=== PATIENT | female | born 1990 | race Caucasian/White ===

== ENCOUNTER 2024-07-21 18:26 | Emergency (ER) | payer BC, OTHER | END 2024-07-21 19:26 | disposition home or self-care (01) | LOC: ERS 18:26 | DX: M79.604 Pain in right leg (principal); I10 Essential (primary) hypertension; Z79.899 Other long term (current) drug therapy | CPT/HCPCS: 72170; 99283 ==

== ENCOUNTER 2024-08-18 10:05 | Outpatient (CLI) | payer BC | END 2024-08-18 10:06 | disposition home or self-care (01) | LOC: SCSMRI 10:05 | PROVIDERS: ATTEND Nurse Practitioner Family | DX: S89.92XD Unspecified injury of left lower leg, subsequent encounter (principal); M25.562 Pain in left knee; S83.512A Sprain of anterior cruciate ligament of left knee, initial encounter; S80.02XA Contusion of left knee, initial encounter; M22.3X2 Other derangements of patella, left knee ==

== ENCOUNTER → 2024-10-07 | Outpatient (CLI) | payer BC ==
[2024-10-07 13:29] LABS: #Basophils 0.06 10x3/uL (0.0-0.2); %Basophils 0.7 % (0.0-1.0); %Eosinophils 2.7 % (0.0-10.0); %Lymphocytes 29.3 % (21.0-51.0); %Monocytes 7.3 % (0.0-10.0); %Neutrophils 59.8 % (42.0-75.0); Hematocrit 41.7 % (36.0-47.0); Hemoglobin 13.8 g/dL (12.0-16.0); Mean Corpuscular HGB CONC 33.1 g/dL (32.0-36.0); Mean Corpuscular Hemoglobin 29.2 pg (27.0-31.0); Mean Corpuscular Volume 88.2 fL (78.0-98.0); Mean Platelet Volume 11.2 fL (7.4-10.4); Platelet Count 265 10x3/uL (130-400); RBC Distribution Width 12.4 % (11.5-14.5); Red Blood Cell (RBC) Count 4.73 mill/uL (4.20-5.40)
[2024-10-07 13:44] LABS: BHCG - Serum Negative (NEGATIVE); Pregs Control Background? CLEAR/WHITE (CLR/WHITE); Pregs Control Bar Appear? YES (CONTROL BAR)
[2024-10-07 13:45] LABS: Anion Gap 14 mmol/L (10-20); BUN (Urea Nitrogen) 14 mg/dL (7.0-18.7); Calc. Creatinine Clearance 0 mL/min (70-130); Calcium 9.7 mg/dL (7.8-10.44); Carbon Dioxide 24 mmol/L (22-29); Chloride 103 mmol/L (98-107); Estimated GFR 103; Glucose 94 mg/dL (70-105); Potassium 4.3 mmol/L (3.5-5.1); Sodium 137 mmol/L (136-145)
== END ==
LOC: LABBT 10:00
PROVIDERS: ATTEND Student in an Organized Health Care Education/Training Program
DX: Z01.818 Encounter for other preprocedural examination (principal); S83.512A Sprain of anterior cruciate ligament of left knee, initial encounter
CPT/HCPCS: 71046; 80048; 84703; 85025; 93005; 93010

== ENCOUNTER 2024-10-11 05:29 | Day surgery (SDC) | payer BC ==
[2024-10-07 12:46] VITALS: BMI 35.5
[2024-10-11] MEDS ORDERED: PROPOFOL 40 ML ONE (06:15)
[2024-10-11] MEDS ORDERED: EPINEPHrine 1 MG/ML VIAL ONE (06:19)
[2024-10-11] MEDS ORDERED: fentaNYL 50 mcg/mL 1 mL Vial ONE ×3 (06:19→10:49)
[2024-10-11] MEDS ORDERED: Midazolam HCl 2 mg/2 ml Vial ONE (06:19)
[2024-10-11] MEDS ORDERED: Bupivacaine PF 0.5% 30 ML VIAL ONE (06:20)
[2024-10-11] MEDS ORDERED: CEFAZOLIN 2 GM VIAL ONE (06:58)
[2024-10-11] MEDS ORDERED: fentaNYL PF 100 MCG/2 ML SYRINGE ONE ×2 (07:01→10:26)
[2024-10-11] MEDS ORDERED: traMADol HCl 50 MG TAB PO PRN ×2 (07:45)
[2024-10-11] MEDS ORDERED: HYDROcodone/Acetaminophen 10/325 mg Tablet PO PRN ×2 (07:45)
[2024-10-11] MEDS ORDERED: Promethazine HCl 25 MG/ML VIAL IM PRN (07:45)
[2024-10-11] MEDS ORDERED: Zolpidem Tartrate 5 MG TAB PO PRN (07:45)
[2024-10-11] MEDS ORDERED: fentaNYL 50 mcg/mL 1 mL Vial SLOW IVP PRN (07:45)
[2024-10-11] MEDS ORDERED: Ondansetron PF 4 MG/2 ML Vial IVP PRN (07:45)
[2024-10-11] MEDS ORDERED: Ropivacaine 0.2% 550 ML 550 ML NERVE BLCK SCH (07:45)
[2024-10-11] MEDS ORDERED: Dexamethasone 20 MG/5 ML VIAL ONE (07:47)
[2024-10-11] MEDS ORDERED: Metoclopramide HCl 10 MG (2 mL) VIAL ONE (07:47)
[2024-10-11] MEDS ORDERED: Glycopyrrolate 0.2 MG/ML 5 ML SYRINGE ONE (08:43)
[2024-10-11] MEDS ORDERED: Tranexamic Acid 1,000 MG/10 ML VIAL ONE (08:52)
[2024-10-11] MEDS ORDERED: Ondansetron PF 4 MG/2 ML Vial ONE (09:43)
[2024-10-11] MEDS ORDERED: Lidocaine 2% PF 100 mg/5 ml Syringe ONE (10:04)
[2024-10-11] MEDS ORDERED: Ketorolac Tromethamine 30 MG (1 mL) VIAL ONE (10:49)
[2024-10-11] MEDS ORDERED: HYDROmorphone 0.5 MG/0.5 ML SYRINGE ONE ×2 (11:19→11:34)
[2024-10-11] MEDS ORDERED: Ketorolac Tromethamine 30 MG (1 mL) VIAL IVP SCH (12:00)
[2024-10-11] MEDS ORDERED: Ropivacaine 0.2% HCl/PF 20 ML ONE (12:30)
[2024-10-11] MEDS ORDERED: HYDROcodone/Acetaminophen 5/325 mg Tablet ONE (14:33)
== END 2024-10-11 15:55 | disposition home or self-care (01) ==
LOC: SDC 05:29
PROVIDERS: ATTEND Student in an Organized Health Care Education/Training Program
PROC: 0MRP47Z Replacement of Left Knee Bursa and Ligament with Autologous Tissue Substitute, Percutaneous Endoscopic Approach (ICD-10-PCS; principal; 2024-10-11)
PROC: 3E0T3BZ Introduction of Anesthetic Agent into Peripheral Nerves and Plexi, Percutaneous Approach (ICD-10-PCS; principal; 2024-10-11)
DX: S83.512A Sprain of anterior cruciate ligament of left knee, initial encounter (principal); I10 Essential (primary) hypertension; F41.9 Anxiety disorder, unspecified; F32.A Depression, unspecified; J45.909 Unspecified asthma, uncomplicated; G40.909 Epilepsy, unspecified, not intractable, without status epilepticus; Z91.041 Radiographic dye allergy status; Z91.013 Allergy to seafood; Z79.51 Long term (current) use of inhaled steroids; Z79.899 Other long term (current) drug therapy; W55.12XA Struck by horse, initial encounter
CPT/HCPCS: A4306; C1713; J0171; J0665; J1100; J1171; J1885; J2003; J2250; J2405; J2704; J2765; J2795; J3010